=== PATIENT | female | born 1975 | race American Indian/Alaskan Native ===

== ENCOUNTER 2018-09-26 09:22 | Emergency (ER) | payer OTHER ==
[~2018-09-26] VITALS: Ht 162.6 cm; Wt 58.1 kg
[2018-09-26] MEDS ORDERED: SYNTHROID50 MCG (09:55)
== END 2018-09-26 17:00 | disposition home or self-care (01) ==
LOC: ER 09:22
DX: K29.60 Other gastritis without bleeding (principal); K29.80 Duodenitis without bleeding; R07.89 Other chest pain

== ENCOUNTER 2018-09-29 09:51 | Outpatient (CLI) | payer OTHER ==
[~2018-09-29 09:51] MED LIST: SYNTHROID50 MCG
== END 2018-09-29 12:23 | disposition home or self-care (01) ==
LOC: RAD 09:51
DX: R41.2 Retrograde amnesia (principal); E07.89 Other specified disorders of thyroid

== ENCOUNTER 2019-01-21 09:36 | Outpatient (CLI) | payer OTHER | END 2019-01-21 09:50 | disposition home or self-care (01) | LOC: TOM 09:36 | DX: G43.909 Migraine, unspecified, not intractable, without status migrainosus (principal) ==

== ENCOUNTER 2020-04-24 09:27 | Outpatient (CLI) | payer OTHER | END 2020-04-24 09:48 | disposition home or self-care (01) | LOC: RAD 09:27 → MAMO-SONO 09:45 → RAD 09:48 | PROVIDERS: ATTEND Obstetrics & Gynecology | DX: Z12.31 Encounter for screening mammogram for malignant neoplasm of breast (principal); N63.10 Unspecified lump in the right breast, unspecified quadrant; N63.20 Unspecified lump in the left breast, unspecified quadrant; E34.1 Other hypersecretion of intestinal hormones; N95.1 Menopausal and female climacteric states ==

== ENCOUNTER 2024-09-06 09:53 | Inpatient (IN) | payer OTHER ==
[~2024-09-06] VITALS: Ht 162.6 cm; Wt 64.4 kg
[2024-09-06 10:28] VITALS: BP 124/82
[2024-09-06 13:10] LABS: RH NEGATIVE
[2024-09-14] MEDS ORDERED: CEFAZOLIN SODIUM 1,000 MG VIAL IV ONE (12:45)
[2024-09-14] MEDS ORDERED: METRONIDAZOLE/SODIUM CHLORIDE 500 MG/100 ML PIGGYBACK IV ONE (12:45)
[2024-09-14] MEDS ORDERED: THROMBIN,HU/FIBRINOGEN/CALCIUM 10 ML SYRINGE TOP ONE (13:00)
[2024-09-14] MEDS ORDERED: POVIDONE-IODINE 118 ML BOTT TOP ONE (13:00)
[2024-09-14] MEDS ORDERED: VISTASEAL DUAL APPICATOR 1 EACH APPL TOP ONE (13:00)
[2024-09-14] MEDS ORDERED: BUPIVACAINE HCL 30 ML VIAL IJ ONE (13:00)
[2024-09-14] MEDS ORDERED: LIDOCAINE HCL 1% 10ML VIAL IJ ONE (13:00)
[2024-09-14] MEDS ORDERED: SUGAMMADEX SODIUM 200 MG/2 ML VIAL IV ONE (15:30)
[2024-09-14] MEDS ORDERED: CELECOXIB 200 MG CAPSULE PO STA (16:16)
[2024-09-14] MEDS ORDERED: GABAPENTIN 100 MG CAPSULE PO STA (16:17)
[2024-09-14] MEDS ORDERED: ACETAMINOPHEN 325 MG TABLET PO STA (16:22)
[2024-09-14] MEDS ORDERED: MORPHINE SULFATE 4 MG/ML VIAL IV ONE (16:25)
[2024-09-14] MEDS ORDERED: CEFOXITIN SODIUM 2,000 MG VIAL IV SCH (17:00)
[2024-09-14] MEDS ORDERED: RINGERS SOLUTION,LACTATED 1,000 ML IV SCH (17:00)
[2024-09-14] MEDS ORDERED: ONDANSETRON HCL 2 MG/ML VIAL IV SCH (18:00)
[2024-09-14] MEDS ORDERED: MORPHINE SULFATE 4 MG/ML CARTRIDGE IV SCH (18:00)
[2024-09-14 19:03] LABS: HEMATOCRIT 38.2 % (36.0-45.00); HEMOGLOBIN 11.7 g/dL (12.0-15.00); MEAN CELL VOLUME 71.2 fL (80.00-100.00); MEAN CORPUSCULAR HEMOGLOBIN 21.8 pg (27.00-32.0); MEAN CORPUSCULAR HGB CONC 30.7 g/dl (32.0-36.0); PLATELET COUNT 326 K/uL (150-450); RED BLOOD COUNT 5.37 M/uL (4.00-6.00)
[2024-09-14 19:04] LABS: RED CELL DISTRIBUTION WIDTH 18.9 % (11.5-14.5)
[2024-09-14 19:13] VITALS: BP 124/82
[2024-09-14 20:21] LABS: CALCIUM 8.7 mg/dL (8.5-10.1); CREATININE SERUM 1.06 mg/dL (0.55-1.02); GFR 55.57; POTASSIUM 4.45 mEq/L (3.5-5.1)
[2024-09-14 22:08] LABS: HEMATOCRIT 31.3 % (36.0-45.00); HEMOGLOBIN 9.8 g/dL (12.0-15.00); MEAN CELL VOLUME 70.7 fL (80.00-100.00); MEAN CORPUSCULAR HEMOGLOBIN 22.2 pg (27.00-32.0); MEAN CORPUSCULAR HGB CONC 31.5 g/dl (32.0-36.0); PLATELET COUNT 321 K/uL (150-450); RED BLOOD COUNT 4.42 M/uL (4.00-6.00); RED CELL DISTRIBUTION WIDTH 19.5 % (11.5-14.5)
[2024-09-15 00:46] VITALS: BP 112/72
[2024-09-15] MEDS ORDERED: OxyCODONE HCL/APAP UD (PERCOCET) PO PRN (08:15)
[2024-09-15] MEDS ORDERED: ACETAMINOPHEN 500 MG GEL..CAP PO SCH (08:15)
[2024-09-15 08:23] VITALS: BP 130/77
[2024-09-15] MEDS ORDERED: CELECOXIB 200 MG CAPSULE PO SCH (09:00)
[2024-09-15] MEDS ORDERED: GABAPENTIN 100 MG CAPSULE PO SCH (13:00)
[2024-09-15 16:52] VITALS: BP 128/77
[2024-09-16] VITALS: BP 130/80
[2024-09-16 08:40] VITALS: BP 120/85
[2024-09-16 10:39] LABS: MEAN CELL VOLUME 70.3 fL (80.00-100.00); MEAN CORPUSCULAR HGB CONC 32.6 g/dl (32.0-36.0); PLATELET COUNT 270 K/uL (150-450); RED BLOOD COUNT 3.99 M/uL (4.00-6.00); RED CELL DISTRIBUTION WIDTH 20.2 % (11.5-14.5)
[2024-09-16 10:40] LABS: HEMOGLOBIN 9.1 g/dL (12.0-15.00); MEAN CORPUSCULAR HEMOGLOBIN 22.8 pg (27.00-32.0)
== END 2024-09-16 11:54 | disposition home or self-care (01) | DRG 743 ==
LOC: O/R 09-14 06:19 → OB/GYN 09-14 09:52
PROVIDERS: Urology; ADMIT Obstetrics & Gynecology Gynecology; ATTEND Obstetrics & Gynecology Gynecology
PROC: 0T788DZ Dilation of Bilateral Ureters with Intraluminal Device, Via Natural or Artificial Opening Endoscopic (ICD-10-PCS; 2024-09-14)
PROC: 0UT74ZZ Resection of Bilateral Fallopian Tubes, Percutaneous Endoscopic Approach (ICD-10-PCS; principal; 2024-09-14 10:45)
PROC: 0UT94ZZ Resection of Uterus, Percutaneous Endoscopic Approach (ICD-10-PCS; 2024-09-14 10:45)
DX: D25.1 Intramural leiomyoma of uterus (principal); D25.2 Subserosal leiomyoma of uterus; D25.0 Submucous leiomyoma of uterus; Z20.822 Contact with and (suspected) exposure to COVID-19; K29.90 Gastroduodenitis, unspecified, without bleeding; R07.89 Other chest pain